=== PATIENT | male | born 1945 | race Asian ===

== ENCOUNTER 2017-05-02 13:52 | Emergency (ER) | payer MEDICARE ==
[~2017-05-02] VITALS: Ht 167.6 cm; Wt 97.6 kg
[2017-05-02] MEDS ORDERED: LUTE25CA PO (14:47)
[2017-05-02] MEDS ORDERED: [UNRECOGNIZED DRUG - OTHER] PO (14:47)
[2017-05-02] MEDS ORDERED: AMLO10TA2 PO (14:47)
[2017-05-02] MEDS ORDERED: JANU50TA8 PO (14:47)
[2017-05-02] MEDS ORDERED: ASPI1TAB PO (14:47)
[2017-05-02] MEDS ORDERED: ATOR1TAB19 PO (14:47)
[2017-05-02] MEDS ORDERED: CENTTAB47 PO (14:47)
[2017-05-02] MEDS ORDERED: COQ1100C PO (14:47)
[2017-05-02] MEDS ORDERED: VITA200038 PO (14:47)
[2017-05-02] MEDS ORDERED: AMLO25TA PO (14:47)
[2017-05-02] MEDS ORDERED: BYST10TA2 PO (14:47)
[2017-05-02] MEDS ORDERED: IRON1TAB PO (14:47)
[2017-05-02] MEDS ORDERED: ONDANSETRON 4MG/2ML VIAL (J2405) IV ONE (15:30)
[2017-05-02] MEDS ORDERED: NS 1,000 ML IV ONE (15:30)
[2017-05-02] MEDS ORDERED: MORPHINE 2 MG/ML 1ML SYRINGE IV PRN (15:30)
[2017-05-02] MEDS ORDERED: GASTROGRAFIN SOLUTION 30ML (Q9963) As Ordered ONE (16:08)
[2017-05-02 16:45] LABS: INR 1.14
[2017-05-02] MEDS ORDERED: GASTROGRAFIN SOLUTION 30ML (Q9963) PO ONE ×2 (16:45)
[2017-05-02 16:51] LABS: ALBUMIN/GLOBULIN RATIO 0.71 (1.00-1.93); ALKALINE PHOSPHATASE 41 U/L (45-117); ALT/SGPT 26 U/L (12-78); AMYLASE 32 U/L (25-115); ANION GAP 7 MEQ/L (8-16); AST/SGOT 30 U/L (15-37); BILIRUBIN,DIRECT 0.3 MG/DL (0.0-0.2); BILIRUBIN,TOTAL 1.6 MG/DL (0.2-1.0); BLOOD UREA NITROGEN 27 MG/DL (7-18); CARBON DIOXIDE LEVEL 30 MEQ/L (21-32); CHLORIDE LEVEL 101 MEQ/L (98-107); CREATININE FOR GFR 1.12 MG/DL (0.70-1.30); GLOMERULAR FILTRATION RATE > 60.0 (>42); GLUCOSE, FASTING 109 MG/DL (83-110); SODIUM LEVEL 138 MEQ/L (136-145); TOTAL PROTEIN 7.2 GM/DL (6.4-8.2)
[2017-05-02] MEDS ORDERED: ISOVUE-370 76% 100ML VIAL (Q9967) As Ordered ONE (17:05)
[2017-05-02 17:11] LABS: BASO % 0.1 % (0.0-1.0); EOS % 0.1 % (0.0-3.0); LARGE UNSTAINED CELL # 0.2 K/mm3 (0.0-0.4); LARGE UNSTAINED CELL % 1.4 % (0.0-4.0); LYMPH # 1.1 K/mm3 (1.5-4.5); LYMPH % 6.4 % (24.0-44.0); MEAN CORPUSCULAR HEMOGLOBIN 29.8 pg (27.0-33.0); MEAN CORPUSCULAR HGB CONC 33.6 g/dl (32.0-36.5); MEAN CORPUSCULAR VOLUME 88.7 fl (80.0-96.0); MONO # 0.7 K/mm3 (0.0-0.8); MONO % 3.9 % (0.0-5.0); NEUTROPHILS # 14.7 K/mm3 (1.8-7.7); PLATELET COUNT, AUTOMATED 152 k/mm3 (150-450); WHITE BLOOD COUNT 16.7 K/mm3 (4.0-10.0)
--- NOTE | 2017-05-02 19:50 | REPUSA ---
CLINICAL HISTORY: Abdomen pain. TECHNIQUE: Multiple axial CT images were obtained through the abdomen and pelvis after administratio n of intravenous contrast material. Oral contrast material was not administered. COMMENTS: Small hiatal hernia is seen. The liver is of uniform attenuation without mass or defect. There is no intra or extrahepatic biliar y ductal dilatation. The spleen is normal. Status post cholecystectomy. The pancreas is of normal contour and attenuation characteristics. There is no evidence of adrenal mass. Both kidneys demonstrate prompt and equal nephrograms. The kidneys are normal in size, shape and con figuration. There is no evidence of renal or ureteral mass. No renal or ureteral calculi are identi fied. There is no hydroureter or hydronephrosis. No evidence for appendicitis. There is no bowel wall thickening. No evidence for small or large bow el obstruction. There is no evidence of abdominal ascites or lymphadenopathy. There is diffuse bladder wall thickening present with pericystic stranding most compatible with cysti tis. Clinical correlation is recommended. There is no pelvic ascites or lymphadenopathy. Prostate gland is moderate to severely enlarged. Images of the lung bases show no evidence of pleural or parenchymal mass. There are no pleural effus ions. The bony structures are free of lytic or blastic lesions. IMPRESSION: 1. Small hiatal hernia is seen. 2. Prostate gland is moderate to severely enlarged. 3. There is diffuse bladder wall thickening present with pericystic stranding most compatible with cy stitis. Clinical correlation is recommended. Thank you for your kind referral of this patient. We appreciate the opportunity to participate in th is patient's care.
[2017-05-02] MEDS ORDERED: FLOM5CAP PO (20:07)
[2017-05-02] MEDS ORDERED: IBUP-1022 PO (20:07)
[2017-05-02] MEDS ORDERED: CIPR-249 PO (20:07)
[2017-05-02 20:09] VITALS: BP 128/70
[2017-05-02] MEDS ORDERED: TAMSULOSIN 0.4 MG CAP PO ONE (20:15)
[2017-05-02] MEDS ORDERED: CIPROFLOXACIN 500 MG TAB PO ONE (20:15)
--- NOTE | 2017-05-03 15:31 | ED PDOC ---
Post-Departure Follow-Up certified letter sent to pt re formal read of ct abd/p for fu . see report. Philip Rojas MD May 03, 2017 15:30
== END 2017-05-02 20:15 | disposition home or self-care (01) ==
LOC: M ED 13:52 → EDBD 13:52 → M ED 20:15
DX: N30.90 Cystitis, unspecified without hematuria (principal); N41.9 Inflammatory disease of prostate, unspecified; R11.2 Nausea with vomiting, unspecified; I11.9 Hypertensive heart disease without heart failure; E11.9 Type 2 diabetes mellitus without complications; E78.5 Hyperlipidemia, unspecified; Z79.899 Other long term (current) drug therapy; Z79.82 Long term (current) use of aspirin; Z79.84 Long term (current) use of oral hypoglycemic drugs
CPT/HCPCS: 74177; 80048; 80076; 81001; 82150; 83690; 85025; 85610; 96374; 96375; 99284; J2405; Q9963; Q9967